=== PATIENT | female | born 1950 | race Caucasian/White ===

== ENCOUNTER → 2016-08-15 | Outpatient (CLI) | payer MEDICARE, BC ==
--- NOTE | 2016-08-16 16:58 | CARD ---
APPROVED REPORT EXAM: Two-dimensional and M-mode echocardiogram with Doppler and color Doppler. Other Information Quality : Average Rhythm : NSR INDICATION Hypertension/HCVD Murmur 2D DIMENSIONS RVDd2.7 (2.9-3.5cm)Left Atrium(2D)3.3 (1.6-4.0cm) IVSd0.9 (0.7-1.1cm)Aortic Root(2D)3.5 (2.0-3.7cm) LVDd4.5 (3.9-5.9cm)LVOT Diameter2.2 (1.8-2.4cm) PWd0.9 (0.7-1.1cm)LVDs2.6 (2.5-4.0cm) FS (%) 32.3 %SV68.5 ml LVEF(%)63.0 (>50%) Aortic Valve AoV Peak Gerald.135.7cm/sAoV VTI26.3cm AO Peak GR.7.4mmHgLVOT Peak Gerald.119.5cm/s LVOT VTI 28.27cmAO Mean GR.4mmHg RODGER (VMAX)3.85jd8XPB (VTI)4.14cm2 AI P 1/2 Ordo172qo Mitral Valve MV E Ajrxhrlw15.5cm/sMV DECEL [id number] MV A Juoxbjkz86.4cm/sMV E Mean Gr.2mmHg MV PGA46ggZ/A Ratio0.7 MV A Ubkoyxbc226qeGIL (PHT)3.33cm2 TDI E/Lateral E'8.5E/Medial E'11.8 Pulmonary Valve PV Peak Debknzmv671.0cm/sPV Peak Grad.5mmHg RVOT VTI20.8cm Pulmonary Vein S1 Fxwpaeno34.4cm/sD2 Wdaqbplb00.0cm/s LEFT VENTRICLE The left ventricle is normal size. There is normal left ventricular wall thickness. Left ventricle sy stolic function is normal. The Ejection Fraction is 63%. There is normal LV segmental wall motion. Th e left ventricular diastolic function and filling is normal for age. RIGHT VENTRICLE The right ventricle is normal size. The right ventricular systolic function is normal. ATRIA The left atrium size is normal. The right atrium size is normal. The interatrial septum is intact wit h no evidence for an atrial septal defect or patent foramen ovale as noted on 2-D or Doppler imaging. AORTIC VALVE The aortic valve is normal in structure. Doppler and Color Flow revealed mild aortic regurgitation. T here is no significant aortic valvular stenosis. MITRAL VALVE The mitral valve is normal in structure and function. There is no mitral valve stenosis. Doppler and Color Flow revealed no mitral valve regurgitation noted. TRICUSPID VALVE The tricuspid valve is normal in structure and function. Doppler and Color Flow revealed no tricuspid valve regurgitation noted. Unable to estimate PA pressure. There is no tricuspid valve stenosis. PULMONIC VALVE The pulmonic valve is not well visualized. Doppler and Color Flow revealed no pulmonic valvular regur gitation. There is no pulmonic valvular stenosis. GREAT VESSELS The aortic root is normal in size. Normal pulmonary venous flow (Doppler). The IVC is normal in size and collapses >50% with inspiration. PERICARDIAL EFFUSION There is no evidence of significant pericardial effusion. Critical Notification Critical Value: No <Conclusion> Left ventricle systolic function is normal. The Ejection Fraction is 63%. The left atrium size is normal. The right atrium size is normal. Doppler and Color Flow revealed mild aortic regurgitation. Doppler and Color Flow revealed no mitral valve regurgitation noted. Doppler and Color Flow revealed no tricuspid valve regurgitation noted. Unable to estimate PA pressur e. The pulmonic valve is not well visualized. There is no evidence of significant pericardial effusion.
== END | disposition home or self-care (01) ==
LOC: ECHO 07:43
PROVIDERS: ATTEND Internal Medicine Cardiovascular Disease
DX: I10 Essential (primary) hypertension (principal); E78.2 Mixed hyperlipidemia; R01.1 Cardiac murmur, unspecified; I35.1 Nonrheumatic aortic (valve) insufficiency
CPT/HCPCS: 93306

== ENCOUNTER → 2017-08-02 | Outpatient (CLI) | payer MEDICARE, BC | END | disposition home or self-care (01) | LOC: ECHO 12:43 | DX: I08.2 Rheumatic disorders of both aortic and tricuspid valves (principal); R06.00 Dyspnea, unspecified; R53.83 Other fatigue | CPT/HCPCS: 93306 ==

== ENCOUNTER → 2019-03-04 | Outpatient (CLI) | payer BC, MEDICARE ==
--- NOTE | 2019-03-04 10:55 | CARD ---
MR#: [id number] Date of Study: 03/04/2019 Ordering Physician: KUSHAL HAWKINS, Referring Physician: KUSHAL HAWKINS, Tech: [place] [facility] APPROVED REPORT EXAM: Two-dimensional and M-mode echocardiogram with Doppler and color Doppler. Other Information Quality : AverageHR: 66bpm Rhythm : NSR INDICATION Ascending Aorta Dilation 2D DIMENSIONS RVDd3.5 (2.9-3.5cm)Left Atrium(2D)3.1 (1.6-4.0cm) IVSd1.3 (0.7-1.1cm)Aortic Root(2D)3.4 (2.0-3.7cm) LVDd4.5 (3.9-5.9cm)LVOT Diameter1.9 (1.8-2.4cm) PWd1.0 (0.7-1.1cm)LVDs2.0 (2.5-4.0cm) FS (%) 55.7 %SV79.7 ml LVEF(%)80.0 (>50%) M-Mode DIMENSIONS Left Atrium(MM)3.78 (2.5-4.0cm)Aortic Root3.40 (2.2-3.7cm) Aortic Valve AoV Peak Gerald.159.4cm/sAoV VTI34.1cm AO Peak GR.10.2mmHgLVOT Peak Gerald.152.5cm/s AO Mean GR.5mmHgAVA (VMAX)2.65cm2 RODGER (VTI)2.27md3IE P 1/2 [id number] Mitral Valve MV E Iivyzhcu87.3cm/sMV DECEL [id number] MV A Aessagkk25.0cm/sE/A Ratio0.8 Pulmonary Valve PV Peak Zvybfyix146.0cm/s Tricuspid Valve TR P. Eavjhour867gs/sRAP IQHDLHFR9qgLe TR Peak Gr.90mzAsQKHW12egPi LEFT VENTRICLE The left ventricle is normal size. Proximal septal thickening is noted. The left ventricle is hyperdy namic. The Ejection Fraction is >70%. There is normal LV segmental wall motion. Transmitral Doppler f low pattern is Grade I-abnormal relaxation pattern. RIGHT VENTRICLE The right ventricle is normal size. There is normal right ventricular wall thickness. The right ventr icular systolic function is normal. ATRIA The left atrium size is normal. The right atrium size is normal. The interatrial septum is intact wit h no evidence for an atrial septal defect or patent foramen ovale as noted on 2-D or Doppler imaging. AORTIC VALVE The aortic valve is normal in structure and function. The aortic valve is trileaflet. Doppler and Col or Flow revealed mild aortic regurgitation. There is no significant aortic valvular stenosis. There i s no aortic valvular vegetation. MITRAL VALVE The mitral valve is normal in structure and function. There is no evidence of mitral valve prolapse. There is no mitral valve stenosis. Doppler and Color-flow revealed trace mitral regurgitation. TRICUSPID VALVE The tricuspid valve is normal in structure and function. Doppler and Color Flow revealed trace tricus pid regurgitation. The PA pressure was estimated at 21 mmHg. There is no tricuspid valve prolapse or vegetation. There is no tricuspid valve stenosis. PULMONIC VALVE The pulmonic valve is not well visualized. GREAT VESSELS The aortic root is normal in size. The ascending aorta is Moderately dilated at 4.5cm. The IVC is nor mal in size and collapses >50% with inspiration. PERICARDIAL EFFUSION There is no evidence of significant pericardial effusion. Critical Notification Critical Value: No <Conclusion> The left ventricle is hyperdynamic. The Ejection Fraction is >70%. There is normal LV segmental wall motion. Transmitral Doppler flow pattern is Grade I-abnormal relaxation pattern. Mild aortic regurgitation. Trace mitral regurgitation. Trace tricuspid regurgitation. The PA pressure was estimated at 21 mmHg. The ascending aorta is Moderately dilated at 4.5cm. There is no evidence of significant pericardial effusion. Signed by : Marko Bob, Electronically Approved : 03/04/2019 10:55:17
== END | disposition home or self-care (01) ==
LOC: ECHO 09:44
PROVIDERS: ATTEND Internal Medicine Cardiovascular Disease
DX: I35.1 Nonrheumatic aortic (valve) insufficiency (principal)
CPT/HCPCS: 93306

== ENCOUNTER → 2019-11-04 | Outpatient (CLI) | payer MEDICARE ==
[~2019-11-04] MED LIST: CONTRAST GIVEN. MC PRN; IOHEXOL 350 MG/ML 100 ML VIAL. IV ONE
[2019-11-04 09:14] LABS: CALCIUM 8.7 mg/dL (8.5-10.1); GFR 54.7
--- NOTE | 2019-11-04 10:11 | RAD ---
CT angiography of the chest and abdomen 11/04/2019 INDICATION: Ascending aortic dilatation COMPARISON STUDY: None available TECHNIQUE: CT angiography of the chest and abdomen was performed following the administration of IV contrast. 3-D reconstructions of thoracic and abdominal vasculature were created on an independent workstation and reviewed. FINDINGS: There is mild dilatation of the ascending thoracic aorta. The sinotubular junction measures approximately 3.3 cm in diameter. At the level of the main pulmonary artery the ascending thoracic aorta measures 4.2 cm. The thoracic aorta is essentially normal in caliber through the arch extending from the right brachiocephalic artery, distally. The descending thoracic aorta is normal in caliber measuring 2.6 cm. Visualized arch vessels are patent. The abdominal aorta is patent without evidence of aneurysm or dissection. No thoracic aneurysm or dissection is identified. Variant celiac axis vascular anatomy noted. The celiac artery gives rise to the splenic artery as well as an artery supplying the left hepatic artery and left gastric artery. Superior mesenteric artery is patent. There is a replaced right hepatic artery, which also supplies a gastroduodenal artery. Bilateral renal arteries are patent. The inferior mesenteric artery is patent. Visualized common iliac arteries are patent. Other findings: Heart is mildly enlarged. No pericardial effusion is seen. There is a small hiatal hernia. No pathologically enlarged mediastinal adenopathy is identified. Calcified lymph nodes in the right hilum and mediastinum suggest prior granulomatous disease. No pneumothorax or pleural effusion is identified. No acute appearing infiltrates are seen. Calcified granuloma noted in the right upper lobe.. Small hepatic hypodensities are, most likely reflecting hepatic cysts or small biliary hamartoma. In the right lobe, the larger lesion measures 1.4 cm in diameter. Smaller lesion in the right lobe measures 8 mm in diameter. The liver is otherwise unremarkable. No other acute abnormalities in the upper abdomen are seen. No acute osseous abnormalities are seen. IMPRESSION: 1. 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 Recommend imaging surveillance based on patient's risk factors. 2. No evidence of acute intra-abdominal abnormality ' CT DOSING PQRS STATEMENT: One or more of the following individualized dose reduction techniques were utilized for this examination: 1. Automated exposure control 2. Adjustment of the mA and/or kV according to patient size 3. Use of iterative reconstruction technique Electronically signed by: Phil Pitt MD (11/04/2019 10:08 AM) [place] [id number]
== END | disposition home or self-care (01) ==
LOC: CT 08:20
PROVIDERS: ATTEND Internal Medicine Cardiovascular Disease
DX: I77.810 Thoracic aortic ectasia (principal); K44.9 Diaphragmatic hernia without obstruction or gangrene; I89.8 Other specified noninfective disorders of lymphatic vessels and lymph nodes; J84.10 Pulmonary fibrosis, unspecified; K76.89 Other specified diseases of liver; I51.7 Cardiomegaly
CPT/HCPCS: 36415; 71275; 74175; 80048; Q9967

== ENCOUNTER → 2021-03-15 | Outpatient (CLI) | payer MEDICARE ==
--- NOTE | 2021-03-15 17:08 | CARD ---
MR#: [id number] Date of Study: 03/15/2021 Ordering Physician: KUSHAL HAWKINS, Referring Physician: KUSHAL HAWKINS, Tech: [facility] APPROVED REPORT EXAM: Two-dimensional and M-mode echocardiogram with Doppler and color Doppler. Other Information Quality : AverageHR: 72bpm Rhythm : NSR INDICATION 2D DIMENSIONS RVDd4.1 (2.9-3.5cm)Left Atrium(2D)3.7 (1.6-4.0cm) IVSd0.8 (0.7-1.1cm)Aortic Root(2D)4.5 (2.0-3.7cm) LVDd4.3 (3.9-5.9cm)LVOT Diameter1.8 (1.8-2.4cm) PWd0.8 (0.7-1.1cm)LVDs2.3 (2.5-4.0cm) FS (%) 47.0 %SV63.9 ml LVEF(%)78.7 (>50%) Aortic Valve AoV Peak Gerald.133.2cm/sAoV VTI25.0cm AO Peak GR.7.1mmHgLVOT Peak Gerald.92.9cm/s LVOT VTI 18.70cmAO Mean GR.4mmHg RODGER (VMAX)1.66wz9VIW (VTI)1.96cm2 AI P 1/2 Pwuj628fz Mitral Valve MV E Clrtrawn19.8cm/sMV DECEL EOMW008kq MV A Itvmakas86.0cm/sMV ZGP28kk E/A Ratio0.8MVA (PHT)3.48cm2 TDI E/Lateral E'7.0E/Medial E'8.0 Pulmonary Valve PV Peak Vcsnuoku659.1cm/sPV Peak Grad.5mmHg Tricuspid Valve TR P. Qzrbethw125ix/sTR Peak Gr.20mmHg Pulmonary Vein S1 Lziamzsl11.0cm/sD2 Jcaxrgfu94.7cm/s LEFT VENTRICLE The left ventricle is normal size. There is normal left ventricular wall thickness. The left ventricu lar systolic function is normal. The ejection fraction is 55-60%. There is normal LV segmental wall m otion. Transmitral Doppler flow pattern is Grade I-abnormal relaxation pattern. No left ventricle thr ombus noted on this study. There is no ventricular septal defect visualized. There is no left ventric ular aneurysm. There is no mass noted in the left ventricle. RIGHT VENTRICLE The right ventricle is normal size. There is normal right ventricular wall thickness. The right ventr icular systolic function is normal. ATRIA The left atrium is mildly dilated. The right atrium size is normal. The interatrial septum is intact with no evidence for an atrial septal defect or patent foramen ovale as noted on 2-D or Doppler imagi ng. AORTIC VALVE The aortic valve is probably trileaflet. Doppler and Color Flow revealed mild aortic regurgitation. T here is no significant aortic valvular stenosis. There is no aortic valvular vegetation. MITRAL VALVE The mitral valve is normal in structure and function. There is no evidence of mitral valve prolapse. There is no mitral valve stenosis. Doppler and Color-flow revealed trace mitral regurgitation. TRICUSPID VALVE The tricuspid valve is normal in structure and function. Doppler and Color Flow revealed trace tricus pid regurgitation. There is no tricuspid valve prolapse or vegetation. There is no tricuspid valve st enosis. PULMONIC VALVE The pulmonary valve is normal in structure and function. Doppler and Color Flow revealed no pulmonic valvular regurgitation. There is no pulmonic valvular stenosis. GREAT VESSELS The aortic root is normal in size. The ascending aorta is normal in size. The pulmonary artery is nor mal. The IVC is normal in size and collapses >50% with inspiration. PERICARDIAL EFFUSION There is no pleural effusion. There is no evidence of significant pericardial effusion. Critical Notification Critical Value: No <Conclusion> The left ventricular systolic function is normal. The ejection fraction is 55-60%. There is normal LV segmental wall motion. Transmitral Doppler flow pattern is Grade I-abnormal relaxation pattern. Mild aortic regurgitation. Trace mitral regurgitation. Trace tricuspid regurgitation. There is no evidence of significant pericardial effusion. Signed by : Marko Bob, Electronically Approved : 03/15/2021 17:07:50
== END ==
LOC: ECHO 10:50
PROVIDERS: ATTEND Internal Medicine Cardiovascular Disease
DX: I35.1 Nonrheumatic aortic (valve) insufficiency (principal); I71.2 Thoracic aortic aneurysm, without rupture
CPT/HCPCS: 93306

== ENCOUNTER → 2021-09-10 | Outpatient (CLI) | payer MEDICARE ==
[2021-09-10 09:05] LABS: CALCIUM 8.9 mg/dL (8.5-10.1); CREATININE 1.2 mg/dL (0.6-1.0); GFR 44.2; POTASSIUM 3.6 mmol/L (3.5-5.1)
--- NOTE | 2021-09-10 15:29 | RAD ---
Study: CT ANGIOGRAM CHEST WITH CONTRAST History: Aortic aneurysm Comparison: CT chest 11/04/2019 Technique: Helical CT of the chest performed after the administration of 80 mL Omnipaque 350 intrave nous contrast and timed for angiographic evaluation of the aorta per dissection protocol. Coronal and sagittal MIP reconstructions were obtained. One or more of the following individualized dose reduction techniques were utilized for this examinat ion: 1. Automated exposure control 2. Adjustment of the mA and/or kV according to patient size 3. Use of iterative reconstruction technique. Findings: Aorta/Great Vessels/Coronary Arteries: The ascending thoracic aorta measures 4.2 cm in diameter, unch anged. The rest of the thoracic aorta is normal in caliber. There is minimal calcified aortic atheros clerosis. Great vessel origins are widely patent. No aortic dissection. Probable scattered coronary a rtery calcifications. Heart: The heart is normal in size. No pericardial effusion. Mediastinum: No mediastinal or hilar lymphadenopathy. Small hiatal hernia. Lungs: There are 2 calcified granulomas in the right upper lobe. The lungs are otherwise clear. No pl eural effusion or pneumothorax. Neck/Axilla/Body Wall: No axillary lymphadenopathy. There is a tiny hypodensity in the right thyroid lobe. Upper Abdomen: Unchanged 1.3 cm simple cyst and 7 mm hypodensity in the liver that is too small maranda cterize but also likely a cyst. Bones: No acute osseous abnormality. Miscellaneous: None IMPRESSION: Mild enlargement of the ascending thoracic aorta measuring 4.2 cm in diameter, unchanged. Electronically signed by: Fransisca Cano MD (09/10/2021 3:27 PM) [id number]
== END ==
LOC: CT 08:45
PROVIDERS: ATTEND Internal Medicine Cardiovascular Disease
DX: I71.2 Thoracic aortic aneurysm, without rupture (principal); I70.0 Atherosclerosis of aorta; J84.10 Pulmonary fibrosis, unspecified; K76.89 Other specified diseases of liver; K44.9 Diaphragmatic hernia without obstruction or gangrene
CPT/HCPCS: 36415; 71275; 80048; Q9967